=== PATIENT | female | born 1940 | race Caucasian/White ===

== ENCOUNTER 2020-02-21 00:09 | Outpatient (CLI) | payer MEDICARE, MEDICAID, SELFPAY ==
--- NOTE | 2020-02-21 10:30 | DI.NM_ITS ---
APPROVED REPORT Exam: Pharmacologic Patient Location: Out-Patient Room/Bed: Stress Nurse: Molly Montesinos RN BMI: 21.96 Baseline Rhythm: Sinus Rhythm, Ventricular Bigeminy Indications: Patient???s record states she had a syncopal episodes in September 2019 and December 2019. Patie nt states she recalls feeling ???weird??? then found herself on the floor between furniture for the episode. She does not have much information to offer regarding the December episode. She also report s she has had palpitations for years. Medical History Medical History: Anxiety, Depression, Bradycardia, GERD, Vertigo, Varicose Veins of lower extremities . Cardiac Medications: Atorvastatin, Lisinopril. Allergies: Buspar. Cardiac Risk Factors: FHX of CAD, HTN, Hyperlipidemia, Smoking Previous Cardiac Procedures: None Pretest Chest Pain Characteristics: No chest pain Exercise History: Sedentary Lung Sounds: Clear to auscultation Heart Sounds: Regular Stress Test Details Test: Pharmacologic stress testing performed using 0.4 mg of regadenoson per 5 mL given IV over 10 s econds. Reason for pharmacologic stress test: physical limitation. Nuclear Acquisition: Rest Tc-99m/Stress Tc-99m 1 day Rest Isotope: Tc-99m Sestamibi. Dose: 11.8 Date: 02/21/2020 Injection Time: 1030 Stress Isotope: Tc-99m Sestamibi. Dose: 36.3 Date: 02/21/2020 Injection Time: 1303 HR Resting HR Supine: 61 bpm Max Heart Rate (APMHR): 142 bpm Target HR (85% APMHR): 120 bpm Max HR Achieved: 109 bpm % of APMHR: 76 BP Resting BP Supine: 166/80 mmHg Max BP: 174/76 mmHg ECG Resting ECG: Sinus Rhythm, Ventricular Bigeminy. Ectopy: Ventricular Bigeminy and Quadrigeminy. Clinical Stress Symptoms: Bilateral upper arm heavyness post Lexiscan injection. Stress ECG Conclusion 1. Resting electrocardiogram showed sinus rhythm with frequent ventricular ectopic beats, otherwise u nremarkable 2. The patient underwent pharmacologic stress with regadenoson 3. Blunted heart rate and blood pressure response to pharmacologic stress. Peak heart rate was 76% o f maximum predicted for age 4. Electrocardiographically the test was nondiagnostic due to inadequate heart rate 5. Quick ventricular ectopic beats were noted throughout including periods of bigeminy and trigeminy Stress Test Summary STAGE HR BP Symptoms NOTES Supine 61 166/80 1 min post Lexiscan injection 100 154/70 3 min post Lexiscan injection 107 174/76 6 min post Lexiscan injection 102 162/82 9 min post Lexiscan injection 92 158/86 MPI Conclusion Normal myocardial perfusion without ischemia or prior infarction EF is 75% Radiologist Interpretation Radiologist Interpretation by: Jesus Swanson MD Interpretation Date/Time: 02/21/2020 16:01:36
[2020-02-21] MEDS: Regadenoson 0.4 MG/5 ML SYR IVP (12:49)
== END 2020-02-21 00:29 ==
PROVIDERS: PCP Family Medicine; Visit Provider Internal Medicine Interventional Cardiology
DX: I47.2 Ventricular tachycardia (principal); R55 Syncope and collapse; R00.2 Palpitations; Z82.49 Family history of ischemic heart disease and other diseases of the circulatory system; I10 Essential (primary) hypertension; E78.5 Hyperlipidemia, unspecified; F17.210 Nicotine dependence, cigarettes, uncomplicated
CPT/HCPCS: 78452; 93016; 93018; 93017; J2785